=== PATIENT | female | born 2000 | race Caucasian/White ===

== ENCOUNTER 2021-12-02 06:03 | Inpatient (IN) ==
[2021-12-02] MEDS ORDERED: *HR* Nalbuphine 10 MG/ML AMPUL IV PRN (06:12)
[2021-12-02] MEDS ORDERED: Azithromycin 500 MG in 0.9 % Sodium Chloride 250 ML IVPB PRN (06:12)
[2021-12-02] MEDS ORDERED: Famotidine 20 MG/2 ML VIAL IVP PRN (06:12)
[2021-12-02] MEDS ORDERED: miSOPROStoL 25 MCG TABLET PO PRN (06:12)
[2021-12-02] MEDS ORDERED: Metoclopramide 10 MG/2 ML VIAL IVP PRN (06:12)
[2021-12-02] MEDS ORDERED: Naloxone 0.4 MG/ML INJ IVP PRN (06:12)
[2021-12-02] MEDS ORDERED: Ondansetron 4 MG/2 ML VIAL IVP PRN (06:12)
[2021-12-02 07:22] LABS: Basophils % 0.3 %; Mean Corpuscular Hemoglobin 28.6 pg (28.0-33.3)
[2021-12-02 07:28] LABS: Eosinophils # 0.1 K/mcL (0.0-0.6); Eosinophils % 0.9 %; Hematocrit 33.3 % (35.3-44.9); Hemoglobin 10.8 g/dL (11.5-15.4); Immature Granulocytes % 0.6 % (0-4); Immature Platelets 4.2 % (1.1-6.1); Lymphocytes # 2.7 K/mcL (0.6-4.6); Lymphocytes % 26.3 %; Mean Corpuscular HGB Conc 32.4 g/dL (31.6-35.5); Mean Corpuscular Volume 88.1 fL (83.0-100.0); Mean Platelet Volume 10.8 fL (9.4-12.4); Monocytes # 0.7 K/mcL (0.0-1.3); Monocytes % 6.7 %; Neutrophils # 6.8 K/mcL (1.6-8.9); Platelet Count 395 K/mcL (140-400); Red Blood Count 3.78 M/mcL (3.82-4.97); Red Cell Distribution Width 12.8 % (11.5-14.5); Segmented Neutrophils % 65.2 %; White Blood Count 10.4 K/mcL (4.3-11.1)
[2021-12-02] MEDS: Ringers Solution, Lactated 1,000 ML IVC SCH ×2 (07:56→10:11)
[2021-12-02 07:57] LABS: Influenza A PCR Negative (Negative); Influenza B PCR Negative (Negative); Resp. Syncytial Virus PCR Negative (Negative)
[2021-12-02 07:59] LABS: SARS-CoV-2 by PCR (In House) Negative (Negative)
[2021-12-02] MEDS: Oxytocin 30 UNIT/503 ML BAG IVC SCH ×2 (07:59→13:20)
[2021-12-02] MEDS ORDERED: Ropivacaine/PF 0.2% 20 ML VIAL EP ONE (09:10)
[2021-12-02] MEDS ORDERED: EPHEDrine 50 MG/ML VIAL IVP PRN (09:10)
[2021-12-02] MEDS ORDERED: *HR* FentaNYL (PF) 100 MCG/2 ML VIAL EP ONE (09:10)
[2021-12-02] MEDS ORDERED: Epidural Premix (fent/bupiv) 110 ML EP SCH (09:15)
[2021-12-02] MEDS ORDERED: *HR* FentaNYL (PF) 100 MCG/2 ML VIAL ONE (09:25)
[2021-12-02] MEDS ORDERED: Ropivacaine/PF 0.2% 20 ML VIAL ONE (09:25)
[2021-12-02 09:27] LABS: Amphetamine Screen,Urine Negative ng/mL (Cutoff=1000); Barbiturate Screen,Urine Negative ng/mL (Cutoff=200); Benzodiazepines Screen,Urine Negative ng/mL (Cutoff=200); Cannabinoid Screen,Urine Negative ng/mL (Cutoff = 50); Cocaine Screen,Urine Negative ng/mL (Cutoff= 300); Opiate Screen,Urine Negative ng/mL (Cutoff=300); Phencyclidine Screen,Urine Negative ng/mL (Cutoff=25)
[2021-12-02] MEDS ORDERED: Ibuprofen 600 MG TABLET PO ONE (13:33)
[2021-12-02] MEDS ORDERED: Ondansetron ODT 4 MG TAB.RAPDIS SL PRN (15:50)
[2021-12-02] MEDS ORDERED: Lanolin 7 G OINT...G. TP PRN (15:50)
[2021-12-02] MEDS ORDERED: Rho Immune Globulin 1,500 UNIT SYRINGE IM PRN (15:50)
[2021-12-02] MEDS ORDERED: Benzocaine/Menthol 56 GM AEROSOL SPRAY TP PRN (15:50)
[2021-12-02] MEDS ORDERED: Oxytocin 30 UNIT/503 ML BAG IVC SCH (15:50)
[2021-12-02] MEDS: Ibuprofen 600 MG TABLET PO SCH ×2 (17:16→23:01)
[2021-12-02] MEDS: Acetaminophen 325 MG TABLET PO SCH ×2 (17:16→23:01)
[2021-12-03] MEDS: Ibuprofen 600 MG TABLET PO SCH (05:48)
[2021-12-03] MEDS: Acetaminophen 325 MG TABLET PO SCH (05:48)
[2021-12-03 07:35] VITALS: BP 120/80; PULSE 82; TEMP 98.2; O2SAT 99
[2021-12-03] MEDS ORDERED: Prenatal Vit/FA 1 EACH TABLET PO SCH (09:00)
== END 2021-12-03 15:07 | disposition home or self-care (01) | DRG 807 ==
LOC: 1NENULAB 06:03 → 1NENUOBS 15:50
PROVIDERS: ADMIT Registered Nurse; ATTEND Registered Nurse